=== PATIENT | female | born 1955 | race African-American/Black ===

== ENCOUNTER 2020-04-05 10:26 | Outpatient (CLI) | payer MEDICARE ==
--- NOTE | 2020-04-05 11:33 | MMO ---
Bilateral MAMMO Bilat Screen [facility]. CLINICAL HISTORY: Patient is 64 years old and is seen for screening. The patient has the following family history of breast cancer: sister, at age 43. The patient has no personal history of cancer. VIEWS: The views performed were: bilateral craniocaudal with tomosynthesis and bilateral mediolateral oblique with tomosynthesis. FILMS COMPARED: The present examination [place] been compared to [place] [facility] [place], 08/01/2013 and 09/29/2016. This study has been interpreted with the assistance of computer-aided detection. MAMMOGRAM FINDINGS: There are scattered fibroglandular densities. There is a focal asymmetry measuring 20 millimeters seen in the posterior lower-outer region of the left breast. In the right breast, there are no suspicious masses, calcifications or areas of architectural distortion. IMPRESSION: FOCAL ASYMMETRY IN THE LEFT BREAST REQUIRES ADDITIONAL EVALUATION. AN ULTRASOUND EXAM IS RECOMMENDED. THE RESULTS OF THIS EXAM WERE SENT TO THE PATIENT. ACR BI-RADS Category 0 - Incomplete: Need additional imaging evaluation. [facility] [place] of the need for additional imaging services. MAMMOGRAPHY NOTE: 1. A negative mammogram report should not delay a biopsy if a dominant of clinically suspicious mass is present. 2. Approximately 10% to 15% of breast cancers are not detected by mammography. 3. Adenosis and dense breasts may obscure an underlying neoplasm. Reported by: LEONICO FULLER MD Electonically Signed: [id number]
== END 2020-04-05 10:27 | disposition home or self-care (01) ==
LOC: BICMAMMO 10:26
PROVIDERS: ATTEND Family Medicine
DX: Z12.31 Encounter for screening mammogram for malignant neoplasm of breast (principal); Z80.3 Family history of malignant neoplasm of breast; N64.89 Other specified disorders of breast
CPT/HCPCS: 77063; 77067

== ENCOUNTER 2020-04-19 10:37 | Outpatient (CLI) | payer MEDICARE ==
--- NOTE | 2020-04-19 11:18 | ULT ---
EXAM: US Breast Limited Lt PROVIDED CLINICAL HISTORY: Abnormal screening mammogram COMPARISON: Screening mammogram 04/05/2020 FINDINGS: At the 4:00 position of the left breast in the region of developing asymmetry, ultrasound demonstrate s a somewhat circumscribed mixed echogenicity mass, measuring approximately 1.7 cm in greatest dimension. This demonstrates posterior shadowing centrally. IMPRESSION: 1.7 cm mixed echogenicity mass at the 4:00 position of the left breast, for which ultrasound-guided b iopsy is recommended. Results and recommendations discussed with the patient and questions answered. BI-RADS 4 -- suspicious abnormality, biopsy recommended
== END 2020-04-19 10:38 | disposition home or self-care (01) ==
LOC: BICULT 10:37
PROVIDERS: ATTEND Family Medicine
DX: R92.2 Inconclusive mammogram (principal); N63.23 Unspecified lump in the left breast, lower outer quadrant

== ENCOUNTER → 2020-05-29 | Day surgery (SDC) | payer MEDICARE ==
--- NOTE | 2020-05-29 13:35 | MMO ---
FILMS COMPARED: The present examination has been compared to prior imaging studies performed at [facility] on 08/01/2013, 09/29/2016, 04/05/2020 and 04/19/2020. MAMMOGRAM FINDINGS: There are scattered fibroglandular densities. There is a new biopsy clip seen in the left breast. IMPRESSION: NEW BIOPSY CLIP IN THE LEFT BREAST IS CONFIRMED UTILIZING POST PROCEDURE MAMMOGRAM. Reported by: LEONCIO FULLER MD Electonically Signed: [id number]
--- NOTE | 2020-05-29 13:43 | ULT ---
EXAM: Ultrasound-guided left breast biopsy PROVIDED CLINICAL HISTORY: Left breast mass COMPARISON: Breast ultrasound 04/19/2020 FINDINGS: Limited sonographic interrogation was performed of the 4:00 left breast, with localization of the pre viously described mass. Informed consent was obtained from the patient. The skin overlying this region was prepped and draped in the usual sterile manner and the soft tissues anesthetized with 1% b uffered lidocaine. A small skin incision was made. Continuous ultrasound guidance was utilized to obtain 5 core samples of the mass. Subsequently, continuous ultrasound guidance was utilized to place a biopsy site marker. [place] were withdrawn and hemostasis achieved. No immediate complications. IMPRESSION: Technically successful 4:00 left breast biopsy. Please correlate with histology results to follow.
== END ==
LOC: BICULT 12:32
PROVIDERS: ATTEND Family Medicine
PROC: 0H9U3ZX Drainage of Left Breast, Percutaneous Approach, Diagnostic (ICD-10-PCS; principal; 2020-05-29)
DX: C50.512 Malignant neoplasm of lower-outer quadrant of left female breast (principal); Z91.040 Latex allergy status; Z91.048 Other nonmedicinal substance allergy status
CPT/HCPCS: 19083; 88305; 88341; 88342

== ENCOUNTER 2020-06-28 07:10 | Day surgery (SDC) | payer MEDICARE ==
[2020-06-27 11:01] VITALS: BMI 29.7
[2020-06-28] MEDS ORDERED: Acetaminophen 500 MG TAB ONE (09:09)
[2020-06-28] MEDS ORDERED: Ketorolac Tromethamine 30 MG/ML VIAL ONE (09:09)
[2020-06-28] MEDS ORDERED: Bupivacaine 0.25% HCL 30 ML VIAL ONE (10:32)
[2020-06-28] MEDS ORDERED: XYLOCAINE 2%-EPI 1:100,000 20 ML VIAL ONE (10:32)
[2020-06-28] MEDS ORDERED: Isosulfan Blue 50 MG/5 ML VIAL ONE (10:32)
[2020-06-28] MEDS ORDERED: Fentanyl 100 MCG/2 ML VIAL ONE ×2 (10:48→12:16)
[2020-06-28] MEDS ORDERED: Rocuronium Bromide 10 MG/ML (10ML VIAL) ONE (13:12)
[2020-06-28] MEDS ORDERED: ePHEDrine 50 MG/ML VIAL ONE (13:12)
[2020-06-28] MEDS ORDERED: PROPOFOL 200 MG/20 ML VIAL ONE (13:12)
[2020-06-28] MEDS ORDERED: Dexamethasone 20 MG/5 ML VIAL ONE (13:12)
[2020-06-28] MEDS ORDERED: Lidocaine 1% PF 5 ML VIAL ONE (13:12)
== END 2020-06-28 14:12 | disposition home or self-care (01) ==
LOC: SDC 07:10
PROVIDERS: ATTEND Specialist
PROC: 0HBU0ZZ Excision of Left Breast, Open Approach (ICD-10-PCS; principal; 2020-06-28)
PROC: 07B60ZX Excision of Left Axillary Lymphatic, Open Approach, Diagnostic (ICD-10-PCS; 2020-06-28)
DX: C50.512 Malignant neoplasm of lower-outer quadrant of left female breast (principal); I10 Essential (primary) hypertension; Z87.891 Personal history of nicotine dependence; Z91.040 Latex allergy status; Z91.048 Other nonmedicinal substance allergy status
CPT/HCPCS: 19301; 38525; 38900; 76098; 78195; A9541; Q9968; 88305; 88307; 88342; J0690; J1100; J1885; J2704; J3010; J3490; S0020

== ENCOUNTER 2021-01-22 13:52 | Outpatient (CLI) | payer MEDICARE | END 2021-01-22 13:53 | disposition home or self-care (01) | LOC: BICMAMMO 13:52 | PROVIDERS: ATTEND Internal Medicine Hematology & Oncology | DX: Z13.820 Encounter for screening for osteoporosis (principal); T38.6X5A Adverse effect of antigonadotrophins, antiestrogens, antiandrogens, not elsewhere classified, initial encounter; M85.852 Other specified disorders of bone density and structure, left thigh; M85.851 Other specified disorders of bone density and structure, right thigh; Z78.0 Asymptomatic menopausal state | CPT/HCPCS: 77080 ==

== ENCOUNTER 2021-06-18 09:03 | Outpatient (CLI) | payer MEDICARE | END 2021-06-18 09:04 | disposition home or self-care (01) | LOC: BICMAMMO 09:03 | PROVIDERS: ATTEND Specialist | DX: Z08 Encounter for follow-up examination after completed treatment for malignant neoplasm (principal); Z85.3 Personal history of malignant neoplasm of breast | CPT/HCPCS: 77066; G0279 ==

== ENCOUNTER 2022-07-08 10:32 | Outpatient (CLI) | payer OTHER | END 2022-07-08 10:33 | disposition home or self-care (01) | LOC: BICMAMMO 10:32 | PROVIDERS: ATTEND Specialist | DX: C50.912 Malignant neoplasm of unspecified site of left female breast (principal) | CPT/HCPCS: 77066; G0279 ==

== ENCOUNTER 2023-01-09 09:03 | Outpatient (CLI) | payer OTHER | END 2023-01-09 09:04 | disposition home or self-care (01) | LOC: BICMAMMO 09:03 | PROVIDERS: ATTEND Internal Medicine Hematology & Oncology | DX: M85.851 Other specified disorders of bone density and structure, right thigh (principal); C50.812 Malignant neoplasm of overlapping sites of left female breast | CPT/HCPCS: 77080 ==